=== PATIENT | female | born 1985 | race Hispanic/Latino ===

== ENCOUNTER 2018-10-01 10:45 | Emergency (ER) | payer OTHER ==
--- NOTE | 2018-10-01 11:14 | ED.PDOC ---
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 Occurred: other - 2 weeks Pain - Lower Extremity: moderate: Right Knee, Right Foot Method of Injury: unknown Improving Factors: rest Worsening Factors: movement Associated Symptoms: see hpi Allergies/Adverse Reactions: Allergies NO KNOWN ALLERGY Allergy (Verified 10/01/18 11:18) Home Medications: Ambulatory Orders NK 10/01/18 Review of Systems - Review of Systems Musculoskeletal: States: see HPI, joint pain All other Systems: Reviewed and Negative, No Change from Baseline Past Medical History (General) - Patient Medical History Hx Seizures: No Hx Hypertension: No Hx Diabetes: No - Social History Hx Physical Abuse: No Hx Emotional Abuse: No Hx Suspected Abuse: No - Female History Hx Last Menstrual Period: 08/15/18 Patient : No Family Medical History - Family History Mother Living Status: Still Living Hx Family Diabetes: Yes - multiple family members Physical Exam - Physical Exam General Appearance: Alert, No apparent distress Eyes, Ears, Nose, Throat: normal ENT inspection Neck: non-tender, full range of motion, supple Cardiovascular/Respiratory: regular rate, rhythm, no M/R/G, normal peripheral pulses, normal breath sounds Gastrointestinal/Abdominal: non-tender, no organomegaly Back: normal inspection, no CVA tenderness, no vertebral tenderness Thigh/Hip: normal inspection, non-tender, no evidence of injury Leg: other - no calf tenderness Knee: no evidence of injury, bone tenderness - tibial line right, other - tibial line tenderness right knee Ankle: normal inspection, non-tender, no evidence of injury Foot: normal inspection, no evidence of injury, bone tenderness - midfoot Neuro/Tendon: normal sensation, normal motor functions, normal tendon functions Mental Status: alert, oriented x 3 Skin: normal color, warm/dry Progress - Progress Progress: 10/01/18 11:39 Vital Signs - 8 hr 10/01/18 11:05 Temperature 99.1 F Pulse Rate [ 87 Right Radial] Respiratory 20 Rate Blood Pressure 156/103 [Right Arm] O2 Sat by Pulse 100 Oximetry 10/01/18 12:27 Able to move without assistance going to the rest room. - Results/Orders Results/Orders: 10/01/18 11:40 Foot,Right 2 Views [RAD] Stat Knee,Right 2 or More Views [RAD] Stat Laboratory Results - last 24 hr 10/01/18 11:55 Serum HCG, Qual Positive Declined to have radiographic studies done after telling her positive result of test. Departure - Departure Clinical Impression: Knee pain, right anterior, Elevated serum hCG, Amenorrhea, secondary Time of Disposition: 12:29 Disposition: Discharge to Home or Self Care Condition: Fair Departure Forms: ED Discharge - Pt. Copy, Patient Portal Self Enrollment Instructions: Knee Pain, Chronic Knee Pain (DC) Home Medications: Ambulatory Orders NK 10/01/18 Additional Instructions: May take Tylenol 500 mg (over the counter one tablet 3 x a day for pain;Need to sign up with primary Md or follow up with primary Md Dr. Huggins for referral to Orthopedist;Return to Emergency room as needed;Need to call up your primary Funeral Service Apprentice As soon as possible
[2018-10-01 12:53] VITALS: BP 145/95; TEMP 97.1; O2SAT 99
== END 2018-10-01 12:51 | disposition home or self-care (01) ==
LOC: ER 10:45
DX: M25.561 Pain in right knee (principal); N91.2 Amenorrhea, unspecified; Z32.01 Encounter for pregnancy test, result positive

== ENCOUNTER → 2019-07-14 | Outpatient (CLI) | payer OTHER | LOC: LAB.O 16:30 | PROVIDERS: ATTEND Family Medicine | DX: O09.521 Supervision of elderly multigravida, first trimester (principal); O26.21 Pregnancy care for patient with recurrent pregnancy loss, first trimester; Z3A.00 Weeks of gestation of pregnancy not specified ==

== ENCOUNTER → 2019-08-07 | Outpatient (CLI) | payer OTHER | LOC: LAB.O 10:01 | PROVIDERS: ATTEND Family Medicine | DX: R73.09 Other abnormal glucose (principal) ==